=== PATIENT | male | born 1995 | race Two or more races ===

== ENCOUNTER 2024-07-14 12:25 | Emergency (ER) | payer SELFPAY ==
--- NOTE | ~2024-07-14 | CT_ITS ---
EXAMINATION: CT abdomen pelvis w con DATE: 07/14/2024 14:28 INDICATION: Left upper quadrant abdominal pain. TECHNIQUE: Computed tomography (CT) of the abdomen and pelvis was performed with 100 mL Omnipaque 350 intravenous contrast. Automated exposure control and iterative reconstruction technique were employe d. The dose-length product was 834.48 mGy-cm. COMPARISON: None. FINDINGS: The visualized portions of the lung bases are clear without pneumonia or pleural effusion. The heart size is normal. No pericardial effusion. There is a small sliding hiatal hernia. There is w all thickening in the esophagus and proximal stomach. There are surgical changes of the stomach. The liver, gallbladder, spleen, pancreas, adrenal glands, and right kidney are normal. There is a 14 mm c yst in left kidney. There is a 18 mm subcutaneous cyst in left posterior trunk, likely a sebaceous cy st. There are no dilated loops of bowel. The appendix is normal. There are no pathologically enlarged lymph nodes. There is no free intraperitoneal fluid. There is mild lumbar spondylosis. IMPRESSION: 1. Wall thickening of the distal esophagus and proximal stomach, likely inflammation. 2. Small sliding hiatal hernia. Reviewed, dictated and finalized at location A. IMPRESSION: 1. Wall thickening of the distal esophagus and proximal stomach, likely inflamm ation. 2. Small sliding hiatal hernia.
--- NOTE | ~2024-07-14 | XR_ITS ---
EXAMINATION: XR chest 2V DATE: 07/14/2024 14:31 INDICATION: Shortness of breath, chills and bodyaches TECHNIQUE: PA and lateral views of the chest were obtained. COMPARISON: None FINDINGS: The lungs are clear with no focal airspace opacities, pulmonary edema, pleural effusion or pneumothor ax. The cardiomediastinal silhouette is normal. Mild thoracic spondylosis. IMPRESSION: 1. No acute cardiopulmonary disease. Reviewed, dictated and finalized at location B.
[2024-07-14 13:01] VITALS: BP 117/82; PULSE 90; RESP 18; TEMP 36.5; O2SAT 99
--- NOTE | 2024-07-14 13:06 | ECG_ITS ---
Test Date: 2024-07-14 13:29:13 Measurements Intervals [place] Rate: 89 P: 71 LA: 146 QRS: 72 QRSD: 86 T: 63 QT: 331 QTc: 403 Interpretive Statements SINUS RHYTHM MINIMAL Q WAVES- INFERIOR LEADS BORDERLINE ECG No previous ECG available for comparison Electronically Signed On 07-14-2024 13:34:26 CDT by Moe Salmon D.O.
--- NOTE | 2024-07-14 13:06 | ED.ABDPAIN ---
HPI - Abdominal Pain General Chief Complaint: Abdominal Pain <Sangeetha Rivas PA-C - Last Filed: 07/14/24 13:07> Stated Complaint: sore throat, abdominal pain <Sangeetha Rivas PA-C - Last Filed: 07/14/24 13:07> Time Seen by Provider: 07/14/24 18:19 <Sangeetha Rivas PA-C - Last Filed: 07/14/24 13:07> Focused HPI: 28-year-old male presents to the emergency department for intermittent sores to his nose and abdominal pain. Patient states the abdominal pain is been going on intermittently for quite a while, this episode has been going on for a month and a half. He states the pain is in his left upper quadrant and at times worse with eating. He is also reporting a productive cough and shortness of breath. Denies hemoptysis, recent surgeries or hospitalizations, history of VTE. Denies chest pain, dysuria or hematuria, diarrhea. States he had an episode of dark stool proximally 1 day ago but that has resolved. Denies use of alcohol or history of GI bleeds. Patient states the sores in his nose or intermittent been present for several years. They are painful. States they do not blister. Denies sore throat GENERAL: Well-appearing, well-nourished, and in no acute distress. HEAD: Normocephalic, atraumatic. CHEST: Clear to auscultation. ?No respiratory distress. ABD: Tenderness to the left upper quadrant on palpation. Abdomen soft. No rebound, guarding or rigidity. No CVA tenderness SKIN: Small crusted lesion the outer left Nare, no active drainage, no erythema or fluctuance HEART: Regular rate and rhythm.? NEURO: ?Alert and oriented x3. Patient screened in triage and initial orders placed.? ?Additional care and disposition to be based upon?diagnostic testing and treatment. <Sangeetha Rivas PA-C - Last Filed: 07/14/24 13:07> History of Present Illness HPI narrative: Patient is a 28-year-old that presents emergency department with a epigastric discomfort and a feeling of reflux as well as sores in his nose the patient reports that he has had intermittent sores in his nose for the last year patient reports that is visiting from [place] and reports that he went to an IV of are the other day and got a IV infusion of Pepcid because he was having discomfort the patient reports that he does not currently have a primary care provider denies fever denies shortness of breath denies vomiting denies diarrhea denies blood in his stool <Romie Del Valle MD - Last Filed: 07/14/24 18:38> Related Data Allergies/Adverse Reactions: Allergies Allergy/AdvReac Type Severity Reaction Status Date / Time No Known Allergies Allergy Unverified 07/14/24 12:25 <Sangeetha Rivas PA-C - Last Filed: 07/14/24 13:07> Review of Systems Review of Systems: A 10 system review of systems was completed on the patient and is negative except for what is stated in the HPI. Nursing and ancillary documentation was reviewed. <Romie Del Valle MD - Last Filed: 07/14/24 18:38> Exam Narrative: GENERAL: Well-appearing, well-nourished, and in no acute distress. HEAD: Normocephalic, atraumatic. EYES: PERRLA and EOMI. ENT: Nares clear, no rhinorrhea or epistaxis. Mucous membranes moist. NECK: Supple. CHEST: Clear to auscultation. No respiratory distress. HEART: Regular rate and rhythm. No murmur heard. Normal peripheral pulses. ABDOMEN: Soft, nontender, nondistended, normal active bowel sounds. EXTREMITIES: Normal range of motion. No edema. SKIN: Warm, dry, no rash. NEURO: No focal deficits. Alert and oriented x3. PSYCH: Normal mood and affect. <Romie Del Valle MD - Last Filed: 07/14/24 18:38> Course Vital Signs Vital signs: Vital Signs Temperature 36.5 C 07/14/24 13:01 Pulse Rate 90 07/14/24 13:01 Respiratory Rate 18 07/14/24 13:01 Blood Pressure 117/82 07/14/24 13:01 Pulse Oximetry 99 07/14/24 13:01 Oxygen Delivery Room Air 07/14/24 13:01 Temperature
[2024-07-14 13:30] LABS: Basophils Absolute Auto 0.1 K/mm3 (0.0-0.1); Basophils Percent Auto 0.9 % (0.2-1.2); Eosinophils Absolute Auto 0.1 K/mm3 (0-0.3); Eosinophils Percent Auto 2.6 % (0-4.4); Hematocrit 44.5 % (42.0-52.0); Hemoglobin 14.6 g/dL (14.0-18.0); Immature Granulocyte Absolute 0.01 K/mm3 (0.00-0.031); Immature Granulocyte Percent A 0.2 % (0-0.5); Lymphocytes Absolute Auto 2.36 K/mm3 (0.9-3.2); Lymphocytes Percent Auto 44.2 % (18.3-44.2); Mean Corpuscular HGB Conc 32.8 g/dl (32-36); Mean Corpuscular Hemoglobin 29.5 pg (26-34); Mean Corpuscular Volume 89.9 fl (80-100); Mean Platelet Volume 10.1 fl (7.4-10.4); Monocytes Absolute Auto 0.4 K/mm3 (0.1-0.6); Monocytes Percent Auto 8.1 % (2.6-8.5); Neutrophils Absolute Auto 2.4 K/mm3 (1.3-6.7); Platelet Count Result 243 k/mm3 (150-375); Red Blood Count 4.95 M/mm3 (4.6-6.20); Red Cell Distribution Width 13.9 % (11.5-14.5); White Blood Count 5.3 K/mm3 (4.5-10.0)
[2024-07-14 13:46] LABS: Alanine Aminotransferase 16 U/L (6-50); Albumin Level 4.7 g/dL (3.5-5.1); Alkaline Phosphatase 54 U/L (38-126); Anion Gap 9 mmol/L (4-12); Aspartate Amino Transferase 22 U/L (17-59); Bilirubin,Total 0.6 mg/dL (0.2-1.3); Blood Urea Nitrogen 8 mg/dL (9-20); Carbon Dioxide 30 mmol/L (22-30); Chloride 99 mmol/L (98-107); Estimated CRCL calculation 135 ml/min; Estimated Glomerular Filt Rate > 60; Glucose 91 mg/dL (65-110); Lipase 43 U/L (23-300); Potassium 4.3 mmol/L (3.4-5.0); Sodium 138 mmol/L (137-145)
[2024-07-14 14:09] LABS: Influenza A QL RT-PCR Negative (Negative); Influenza B QL RT-PCR Negative (Negative); RSV RNA, RT-PCR Negative (Negative); SARS-CoV-2 RNA PCR Negative (Negative)
== END 2024-07-14 19:02 | disposition home or self-care (01) ==
PROVIDERS: Physician Assistant; Emergency Provider Emergency Medicine
DX: K29.70 Gastritis, unspecified, without bleeding (principal); Z20.822 Contact with and (suspected) exposure to COVID-19; K44.9 Diaphragmatic hernia without obstruction or gangrene; R94.31 Abnormal electrocardiogram [ECG] [EKG]
CPT/HCPCS: 36415; 71046; 74177; 80053; 83690; 85025; 87637; 93005; 99284; Q9967